=== PATIENT | female | born 1990 | race Caucasian/White ===

== ENCOUNTER 2022-04-29 13:31 | Emergency (ER) | payer OTHER ==
--- OUTSIDE RECORDS SUMMARY | 2022-04-29 13:34 | XMS REPORT | Continuity of Care Document ---
:1990 Author Organization [facility] t Address [address] [place] [address] Care Team Providers Name Role Phone Boris Juárez Primary Care Physician Boris Juárez Attending Clinician Unavailable NAN ARNDT Attending Clinician Unavailable Nan Arndt MD Attending Clinician Doctor Unassigned, [place] Attending Clinician Unavailable Payers Payer Name Policy Type Policy Number Effective Date Expiration Date S ource [place] [id number] 2019 - OUT OF STATE 00:00:00 [employer] 53 [id number] 2021 [facility] 00:00:00 [facility] Blue Cross 6 [id number] 2019 [facility] Blue Shield of 00:00:00 [facility] Problems Condition Condition Condition Status Onset Resolution Last Treating Co mments Source Name Details Category Date Date Treatment Clinician Date Nexplanon Nexplanon Disease Active Uni vers removal removal 3 ity of 00:00: [place] [address] Medical Branch [id number] Adult BMI Problem Com mon 31.0-31.9 Spirit kg/sq [facility] [id number] Subclinica Problem Com mon l Spirit hypothyroi - [facility] dism [facility] Hypertrigl Hypertrigl Problem C ommon yceridemia yceridemia Sp nandini [facility] [id number] Autoimmune Problem Com mon thyroiditi Spirit s - [facility] [id number] Other Problem Common specified Spirit hypothyroi - [facility] dism [facility] [id number] Other Problem Common obesity Spirit due to - [facility] excess [facility] Allergies, Adverse Reactions, Alerts Allergy Allergy Status Severity Reaction(s) Onset Inactive Treating Comm ents Source Name Type Date Date Clinician NO KNOWN Drug Active Univers ALLERGIE Class ity of S [facility] Latex Latex Active swelling [facility] - [facility] Social History Social Habit Start Date Stop Date Quantity Comments Source History of Tobacco Current Smoker Co mmon Spirit - Use [facility] Sex Assigned At Common Sp nandini - [facility] History SDOH University o f Alcohol Frequency [facility] edical Branch History SDOH University o f Alcohol Std Drinks [facility] History SDMS University o f Alcohol Binge [facility] al Branch Alcohol intake 2021-08-19 2021-08-19 Current drinker Unive rsity of 00:00:00 00:00:00 of alcohol [facility] (finding) Branch Cigarettes smoked 2021-07-25 2021-07-25 Univers ity of current (pack per 00:00:00 00:00:00 [facility]) - Reported Branch Cigarette 2021-07-25 2021-07-25 University of pack-years 00:00:00 00:00:00 [facility] Tobacco use and 2021-07-25 2021-07-25 Never used Universit y of exposure 00:00:00 00:00:00 [facility] Alcohol Comment 2021-07-25 2021-07-25 2 x per month Univer sity of 00:00:00 00:00:00 [facility] Smoking Status Start Date Stop Date Source Current Smoker 2022-02-24 00:00:00 [facility] - [facility] Former smoker 2021-07-25 00:00:00 2021-07-25 00:00:00 Universi ty [facility] Medications Ordered Filled Start Stop Current Ordering Indication Dosage Frequency Signature Comments Components Source Medication Medication Date Date Medication? Clinician (SIG) Name Name Levothyroxi Levothyroxi No QD Levothyrox ne Sodium ne Sodium 8-08 ine Sodium 25 MCG 25 MCG 00:00: 25 MCG 00 etonogestre Yes 68mg 68 mg by Un jackie L 3-04 Subdermal ity of (NEXPLANON) 09:05: route once [place] 68 mg 04 now. Medical implant Branch etonogestre 0 Yes 68mg 68 mg by Un jackie L 3-04 Subdermal ity of (NEXPLANON) 09:05: route once [place] 68 mg 04 now. Medical implant Branch Levothyroxi Levothyroxi No QD Levothyrox ne Sodium ne Sodium ine Sodium 50 MCG 50 MCG 50 MCG Biotin 5000 Biotin 5000 No 1{capsu QD Biotin 5 MG 5 MG le} 5000 5 MG Levothyroxi Levothyroxi No Levothyrox ne Sodium ne Sodium ine Sodium 25 MCG 25 MCG 25 MCG Biotin 5000 Biotin 5000 No 1{capsu QD Biotin 5 MG 5 MG le} 5000 5 MG Biotin 5000 Biotin 5000 No 1{capsu QD Biotin 5 MG 5 MG le} 5000 5 MG Levothyroxi Levothyroxi No QD Levothyrox ne Sodium ne Sodium ine Sodium 50 MCG 50 MCG 50 MCG Biotin 5000 Biotin 5000 No 1{capsu QD Biotin 5 MG 5 MG le} 5000 5 MG Levothyroxi Levothyroxi No Levothyrox ne Sodium ne Sodium ine Sodium 25 MCG 25 MCG 25 MCG Immunizations Ordered Filled Immunization Date Status Comments [facility] e Immunization Name Name Influenza Virus 2021-07-25 Completed Universit y of Vaccine Quad IM, 00:00:00 [facility] dical Preserv and ABX Branch Free 6 MO-64 YRS Influenza Virus 2021-07-25 Completed Universit y of Vaccine Quad IM, 00:00:00 [facility] dical Preserv and ABX Branch Free 6 MO-64 YRS SARS-COV-2 COVID-19 2020-10-24 Completed Unive rsity of MODERNA VACCINE 00:00:00 [facility] SARS-COV-2 COVID-19 2020-10-24 Completed Unive rsity of MODERNA VACCINE 00:00:00 [facility] SARS-COV-2 COVID-19 2020-09-28 Completed Unive rsity of MODERNA VACCINE 00:00:00 [facility] SARS-COV-2 COVID-19 2020-09-28 Completed Unive rsity of MODERNA VACCINE 00:00:00 [facility] Afluria single dose Afluria single dose 2019-04-11 Completed [facility] - 16:08:00 [facility] Afluria single dose Afluria single dose 2019-04-11 Completed [facility] - 16:08:00 [facility] Afluria single dose Afluria single dose 2019-04-11 Completed [facility] - 16:08:00 [facility] Afluria single dose Afluria single dose 2019-04-11 Completed Common [facility] - 16:08:00 [facility] Vital Signs Vital Name Observation Time Observation Value Comments Source height 2022-02-24 08:40:00 62 [in_i] [facility] weight 2022-02-24 08:40:00 173 [lb_av] [facility] bmi 2022-02-24 08:40:00 31.64 kg/m2 [facility] height 2021-12-30 07:50:00 62 [in_i] [facility] weight 2021-12-30 07:50:00 173 [lb_av] [facility] temperature 2021-12-30 07:50:00 98 [degF] [facility] bmi 2021-12-30 07:50:00 31.64 kg/m2 [facility] blood pressure 2021-12-30 07:50:00 121 mm[Hg] Common [facility] - systolic [facility] blood pressure 2021-12-30 07:50:00 70 mm[Hg] Common [facility] - diastolic [facility] weight 2021-12-02 08:00:00 178.8 [lb_av] [facility] temperature 2021-12-02 08:00:00 98.0 [degF] [facility] bmi 2021-12-02 08:00:00 32.7 kg/m2 [facility] oximetry 2021-12-02 08:00:00 98 % [facility] respiratory rate 2021-12-02 08:00:00 18 /min Comm on Spirit - [facility] blood pressure 2021-12-02 08:00:00 116 mm[Hg] [facility] - systolic [facility] blood pressure 2021-12-02 08:00:00 65 mm[Hg] [facility] - diastolic [facility] height 2021-12-02 08:00:00 62 [in_i] Common S pirit - [facility] Systolic blood 2021-08-19 19:55:00 126 mm[Hg] Univer sity [facility] Diastolic blood 2021-08-19 19:55:00 78 mm[Hg] Unive rsity [facility] Heart rate 2021-08-19 19:55:00 68 /min [facility] Body temperature 2021-08-19 19:55:[address] [facility] Res[facility] rate 2021-08-19 19:55:00 18 /min [facility] Body height 2021-08-19 19:55:00 157.5 cm [facility] Body weight 2021-08-19 19:55:00 82.691 kg [facility] BMI 2021-08-19 19:55:00 33.34 kg/m2 [facility] Procedures Procedure Date / Time Performed Performing Clinician [facility] e DISCLOSURE AND 2021-08-19 05:01:00 Doctor Unassigned, No [facility] CONSENT, MEDICAL AND Name Medical [facility] SURGICAL PROCEDURES Encounters Start End Encounter Admission Attending Care Care Encounter Source Date/Time Date/Time Type Type Clinicians Facility Department ID 2021-12-03 Outpatient Juárez, STLMLC [facility] [id number] Common 07:55:00 Boris [facility] 2021-12-02 Outpatient Juárez, STLMLC [facility] [id number] Common 08:02:01 Boris [facility] 2022-07-28 2022-07-28 Outpatient NAN BREAUX [facility] [id number] Univers 10:00:00 10:00:00 ity [facility] 2022-02-24 2022-02-24 OFFICE STLMLC [facility] [id number] Co mmon 00:00:00 00:00:00 VISIT EST Spir it PT LEVEL 3 - [facility] 2021-12-30 2021-12-30 OFFICE STLMLC [facility] [id number] Co mmon 00:00:00 00:00:00 VISIT Robert ESTAB PT - CHI LEVEL 4 [facility] 2021-12-02 2021-12-02 PREV VISIT STLMLC [facility] [id number] Common 00:00:00 00:00:00 EST AGE Spirit 18-39 - [facility] 2021-08-19 2021-08-19 Outpatient R NAN ARNDT [facility] [id number] Univers 14:30:00 15:21:06 ity of [facility] 2021-08-19 2021-08-19 Office Nan Arndt [facility] [id number] Univers 14:30:00 15:21:06 Visit GLORY [id number] it y of WOMEN'S [id number] [facility] [id number] [facility] 134 Branch 2021-08-19 2021-08-19 Outpatient R NAN ARNDT [facility] [id number] Univers 14:30:00 15:21:06 ity of [facility] 2021-08-19 2021-08-19 Orders Doctor FELECIA [id number] Univers 00:00:00 00:00:00 Only Unassigned, MAYE [id number] ity of [place] [facility] [id number] [facility] [id number] [place] [address] Branch 2021-07-25 2021-07-25 Outpatient R NAN ARNDT [facility] [id number] Univers 15:30:00 16:45:27 ity [facility] 2021-07-25 2021-07-25 Outpatient R NAN ARNDT [facility] [id number] Univers 15:30:00 16:45:27 ity [facility] 2021-07-25 2021-07-25 Office Nan Arndt [facility] [id number] Univers 15:30:00 16:45:27 Visit GLORY [id number] it y of WOMEN'S [id number] [facility] [id number] [facility] 134 Branch Results This patient has no known results.
[2022-04-29] MEDS ORDERED: dexAMETHasone 10 MG/ML VIAL ONE (13:53)
[2022-04-29] MEDS ORDERED: DIPHENHYDRAMINE 50 MG/ML VIAL ONE (13:53)
[2022-04-29] MEDS ORDERED: FAMOTIDINE 20 MG/2 ML VIAL IV ONE (13:54)
[2022-04-29] MEDS ORDERED: NA CHLORIDE 0.9% 1,000 ML ONE (13:54)
--- NOTE | 2022-04-29 16:27 | EDPHYS ---
Physician Documentation [facility] Name: Maryanne Andino Age: 32 yrs Sex: Female : 1990 Arrival Date: 04/29/2022 Time: 13:31 Bed 6 Private MD: ED Physician Jose R Goldsmith HPI: 04/29 13:41 This 32 yrs old Female presents to ER via Unassigned with complaints of Allergic snw Reaction, Rash. 13:41 The patient presents with localized swelling, rash, chest tightness. Onset: The snw symptoms/episode began/occurred suddenly, last night, and became worse this morning. Associated signs and symptoms: The patient has no apparent associated signs or symptoms. Possible causes: antibiotics, penicillin. At home the patient or guardian has treated the symptoms with nothing. Severity of symptoms: At their worst the symptoms were moderate severe. The patient has not experienced similar symptoms in the past. pt on Amoxil for dental infection. 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 - Social history:: Smoking status: Patient denies any tobacco usage or history of. ROS: 13:41 Constitutional: Negative for fever, chills, and weight loss, Eyes: Negative for injury, snw pain, redness, and discharge, ENT: Negative for injury, pain, and discharge, Neck: Negative for injury, pain, and swelling, Cardiovascular: Negative for chest pain, palpitations, and edema. 13:41 Abdomen/GI: Negative for abdominal pain, nausea, vomiting, diarrhea, and constipation, Back: Negative for injury and pain, : Negative for injury, bleeding, discharge, and swelling, MS/Extremity: Negative for injury and deformity, Neuro: Negative for headache, weakness, numbness, tingling, and seizure. 13:41 Respiratory: Positive for tightness. 13:41 Skin: Positive for rash. Exam: 13:40 Constitutional: This is a well developed, well nourished patient who is awake, alert, snw and in no acute distress. Head/Face: Normocephalic, atraumatic. Eyes: Pupils equal round and reactive to light, extra-ocular motions intact. Lids and lashes normal. Conjunctiva and sclera are non-icteric and not injected. Cornea within normal limits. Periorbital areas with no swelling, redness, or edema. ENT: Nares patent. No nasal discharge, no septal abnormalities noted. Tympanic membranes are normal and external auditory canals are clear. Oropharynx with no redness, swelling, or masses, exudates, or evidence of obstruction, uvula midline. Mucous membranes moist. Neck: Trachea midline, no thyromegaly or masses palpated, and no cervical lymphadenopathy. Supple, full range of motion without nuchal rigidity, or vertebral point tenderness. No Meningismus. Chest/axilla: Normal chest wall appearance and motion. Nontender with no deformity. No lesions are appreciated. 13:40 Respiratory: Lungs have equal breath sounds bilaterally, clear to auscultation and percussion. No rales, rhonchi or wheezes noted. No increased work of breathing, no retractions or nasal flaring. Abdomen/GI: Soft, non-tender, with normal bowel sounds. No distension or tympany. No guarding or rebound. No evidence of tenderness throughout. Back: No spinal tenderness. No costovertebral tenderness. Full range of motion. MS/ Extremity: Pulses equal, no cyanosis. Neurovascular intact. Full, normal range of motion. Neuro: Awake and alert, GCS 15, oriented to person, place, time, and situation. Cranial nerves II-XII grossly intact. Motor strength 5/5 in all extremities. Sensory grossly intact. Cerebellar exam normal. Normal gait. 13:40 Cardiovascular: Rate: tachycardic, Rhythm: regular, Pulses: no pulse deficits are appreciated. 13:40 Skin: Appearance: normal except for affected area, consistent with drug rash, amoxil. Vital Signs: 13:42 BP 124 / 82; Pulse 120; Resp 18; Temp 98.7; Pulse Ox 97% on R/A; Weight 79.38 kg; jh5 Height 5 ft. 2 in. (157.48 cm); Pain 0/10; 14:11 BP 113 / 75; Pulse 86; Pulse Ox 99% on R/A; ap3 15:57 BP 102 / 69; Pulse 78; Pulse Ox 99% on R/A; ap3 13:42 Body Mass Index 32.01 (79.38 kg, 157.48 cm) 5 MDM: 13:37 Patient medically screened. snw 15:05 Data reviewed: vital signs, nurses notes. Data interpreted: Pulse oximetry: on room air snw is 99 %. Interpretation: normal. Counseling: I had a detailed discussion with the patient and/or guardian regarding: the historical points, exam findings, and any diagnostic results supporting the discharge/admit diagnosis, the need for outpatient follow up, for definitive care. Response to treatment: the patient's symptoms have mildly improved after treatment. Special discussion: Based on the history and exam findings, there is no indication for further emergent testing or inpatient evaluation. I discussed with the patient/guardian the need to see the door framer for further evaluation of the symptoms. I discussed with the patient/guardian the need to see a dentist for further evaluation of the symptoms. I discussed with the patient/guardian the need to see the primary care provider for further evaluation of the symptoms. 15:05 ED course: will observe another 30 min. Pt not short of breath, pressure relieved. snw Administered Medications: 14:04 Drug: Pepcid (famotidine) 20 mg Route: IVP; Site: left antecubital; ap3 16:46 Follow up: Response: No adverse reaction ap3 14:04 Drug: Benadryl (diphenhydrAMINE) 25 mg Route: IVP; Site: left antecubital; ap3 16:46 Follow up: Response: No adverse reaction ap3 14:04 Drug: Decadron - Dexamethasone 10 mg Route: IVP; Site: left antecubital; ap3 16:46 Follow up: Response: No adverse reaction ap3 14:04 Drug: NS 0.9% 1000 ml Route: IV; Rate: 1 bolus; Site: left antecubital; ap3 16:46 Follow up: IV Status: Infusion continued; IV Intake: 1000ml ap3 Disposition: 18:46 Co-signature as Attending Physician, Jose R Goldsmith MD I agree with the assessment and kdr plan of care. Disposition Summary: 04/29/22 16:27 Discharge Ordered Location: Home snw Condition: Stable snw Diagnosis - Allergy status to penicillin snw Followup: snw - With: Emergency Department - When: As needed - Reason: Worsening of condition Followup: snw - With: Private Physician - When: 2 - 3 days - Reason: Recheck today's complaints, Continuance of care, Re-evaluation by your physician Discharge Instructions: - Discharge Summary Sheet snw - Drug Allergy snw Forms: - Medication Reconciliation Form snw - Thank You Letter snw - Antibiotic Education snw - Prescription Opioid Use snw - Work release form snw Prescriptions: - chlorhexidine gluconate 0.12 % Mucous Membrane mouthwash - place 15 milliliter by MUCOUS MEMBRANE route 2 times per day after brushing snw teeth, swish in mouth for 30 seconds then spit out; 480 milliliter; Refills: 0, Product Selection Permitted - Zyrtec 10 mg Oral Tablet - take 1 tablet by ORAL route once daily As needed; 20 tablet; Refills: 0, snw Product Selection Permitted - Prednisone 20 mg Oral Tablet - take 2 tablets by ORAL route once daily for 5 days; 10 tablet; Refills: 0, snw Product Selection Permitted - Pepcid 20 mg Oral Tablet - take 1 tablet by ORAL route once daily; 20 tablet; Refills: 0, Product snw Selection Permitted Signatures: Jose R Goldsmith MD MD kdr Ivy Valenzuela, YARN TESTER-C YARN TESTER-Csnw Maryanne Bullard RN RN ap3 Eunice Shirley RN RN 5 Corrections: (The following items were deleted from the chart) 13:44 13:44 Allergies: No Known Allergies; [place] [id number]
--- NOTE | 2022-04-29 16:27 | ER ---
Nurse's Notes [facility] Name: Maryanne Andino Age: 32 yrs Sex: Female : 1990 Arrival Date: 04/29/2022 Time: 13:31 Bed 6 Private MD: Diagnosis: Allergy status to penicillin Presentation: 04/29 13:42 Chief complaint: Patient states: The only thing I can think of to cause this is jh5 Amoxicillin that I started last week on . This rash started yesterday but it's way worse today and now my airway it feeling tight. Coronavirus screen: Vaccine status: Patient reports receiving the 2nd dose of the covid vaccine. Client denies travel out of the [place] in the last 14 days. Ebola Screen: Patient negative for fever greater than or equal to 101.5 degrees Fahrenheit, and additional compatible Ebola Virus Disease symptoms Patient denies exposure to infectious person. Patient denies travel to an Ebola-affected area in the 21 days before illness onset. Onset: The symptoms/episode began/occurred gradually. Anaphylaxis evaluation, the patient reports or I have noted the following symptoms which indicate a significant risk of anaphylaxis:. Initial Sepsis Screen: Does the patient meet any 2 criteria? No. Patient's initial sepsis screen is negative. Does the patient have a suspected source of infection? No. Patient's initial sepsis screen is negative. Risk Assessment: Do you want to hurt yourself or someone else? Patient reports no desire to harm self or others. Onset of symptoms was April 28, 2022. 13:42 Method Of Arrival: Ambulatory [facility] 13:42 Acuity: RONAN 3 5 Triage Assessment: 13:44 General: Appears uncomfortable, well groomed, well developed, well nourished, Behavior [facility] is calm, cooperative, appropriate for age. Pain: Denies pain. 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 - Social history:: Smoking status: Patient denies any tobacco usage or history of. Screenin:05 Abuse screen: Denies threats or abuse. Nutritional screening: No deficits noted. ap3 Tuberculosis screening: No symptoms or risk factors identified. Fall Risk None identified. Assessment: 14:05 Respiratory: Airway is patent Respiratory effort is even, unlabored. ap3 14:12 General: Appears uncomfortable, Behavior is calm, cooperative. Pain: Denies pain. ap3 Neuro: Level of Consciousness is awake, alert, obeys commands, Oriented to person, place, time. Cardiovascular: Patient's skin is warm and dry. Respiratory: Breath sounds are clear. Derm: Rash noted that is itchy, papular, red, on chest, abdomen, posterior chest, buttocks, left hand, right hand, back, face, right arm, left arm, right leg and left leg. 15:57 Reassessment: Patient and/or family updated on plan of care and expected duration. Pain ap3 level reassessed. Patient is alert, oriented x 3, equal unlabored respirations, skin warm/dry/pink. Derm: rash is improving. Vital Signs: 13:42 BP 124 / 82; Pulse 120; Resp 18; Temp 98.7; Pulse Ox 97% on R/A; Weight 79.38 kg; jh5 Height 5 ft. 2 in. (157.48 cm); Pain 0/10; 14:11 BP 113 / 75; Pulse 86; Pulse Ox 99% on R/A; ap3 15:57 BP 102 / 69; Pulse 78; Pulse Ox 99% on R/A; ap3 13:42 Body Mass Index 32.01 (79.38 kg, 157.48 cm) jh5 ED Course: 13:31 Patient arrived in ED. rg4 13:35 Ivy Valenzuela [facility]C [facility]. snw 13:35 Jose R Goldsmith MD is Attending Physician. snw 13:43 Maryanne Bullard RN is Primary Nurse. ap3 13:44 Triage completed. jh5 13:44 Arm band placed on right wrist. jh5 14:04 Inserted saline lock: 20 gauge in left antecubital area, using aseptic technique. ap3 14:05 Patient has correct armband on for positive identification. Bed in low position. Call ap3 light in reach. Side rails up X 1. Adult w/ patient. Pulse ox on. NIBP on. Door closed. Noise minimized. 16:45 No provider procedures requiring assistance completed. IV discontinued, intact, ap3 bleeding controlled, No redness/swelling at site. Pressure dressing applied. Administered Medications: 14:04 Drug: Pepcid (famotidine) 20 mg Route: IVP; Site: left antecubital; ap3 16:46 Follow up: Response: No adverse reaction ap3 14:04 Drug: Benadryl (diphenhydrAMINE) 25 mg Route: IVP; Site: left antecubital; ap3 16:46 Follow up: Response: No adverse reaction ap3 14:04 Drug: Decadron - Dexamethasone 10 mg Route: IVP; Site: left antecubital; ap3 16:46 Follow up: Response: No adverse reaction ap3 14:04 Drug: NS 0.9% 1000 ml Route: IV; Rate: 1 bolus; Site: left antecubital; ap3 16:46 Follow up: IV Status: Infusion continued; IV Intake: 1000ml ap3 Medication: 14:05 VIS not applicable for this client. ap3 Intake: 16:46 IV: 1000ml; Total: 1000ml. ap3 Outcome: 16:27 Discharge ordered by . snw 16:45 Discharged to home ambulatory. ap3 16:45 Condition: good 16:45 Discharge instructions given to patient, Instructed on discharge instructions, follow up and referral plans. medication usage, Demonstrated understanding of instructions, follow-up care, medications, Prescriptions given X 4. 16:46 Patient left the ED. ap3 Signatures: Ivy Valenzuela, [employer]-C [employer]-Domenica Kirkpatrick4 Maryanne Bullard RN RN ap3 Eunice Shirley RN RN 5 Corrections: (The following items were deleted from the chart) 13:44 13:44 Allergies: No Known Allergies; [place] [id number] 14:13 14:12 Derm: Rash noted that is itchy, papular, red, ap3 ap3
[2022-04-29 21:24] VITALS: TEMP 98.7
[2022-04-29 21:30] VITALS: O2SAT 99
[2022-04-29 21:35] VITALS: BP 102/69
== END 2022-04-29 16:46 | disposition home or self-care (01) ==
LOC: ER 13:31
DX: R21 Rash and other nonspecific skin eruption (principal); Z88.0 Allergy status to penicillin; Z88.1 Allergy status to other antibiotic agents; Z91.040 Latex allergy status; Z91.048 Other nonmedicinal substance allergy status
CPT/HCPCS: 96361; 96375; 96374; 99284; J1200; J1100; J7030